=== PATIENT | male | born 1985 | race Caucasian/White ===

== ENCOUNTER 2023-09-23 07:18 | Emergency (ER) | payer OTHER ==
[~2023-09-23] VITALS: Ht 185.4 cm; Wt 88.2 kg
[2023-09-23 07:21] VITALS: TEMP 97.3
[2023-09-23] MEDS ORDERED: BACL10TA PO (10:27)
[2023-09-23 11:02] VITALS: BP 117/74; PULSE 70; RESP 16; O2SAT 96
== END 2023-09-23 11:04 | disposition home or self-care (01) ==
LOC: ER 07:18
DX: M76.892 Other specified enthesopathies of left lower limb, excluding foot (principal); Z79.899 Other long term (current) drug therapy
CPT/HCPCS: 73502; 99284